=== PATIENT | male | born 1955 | race Caucasian/White ===

== ENCOUNTER 2018-07-21 12:22 | Day surgery (SDC) | payer OTHER, SELFPAY ==
[2018-07-19 14:15] VITALS: BMI 28.8
[2018-07-21] VITALS (7 sets, daily range): BP systolic 116–137; BP diastolic 63–87; PULSE 59–69; RESP 12–16; TEMP 36.2–36.6; O2SAT 96–100; BMI 28.8
--- NOTE | 2018-07-21 | DI.RAD.S_ITS ---
PROCEDURE: XR LUMBAR SPINE 2-3V INDICATIONS: L5-S1 MICRODISCECTOMY TECHNIQUE: 2 views of the lumbar spine were acquired. COMPARISON: None. FINDINGS: 2 spot fluoroscopic intraoperative images demonstrating a surgical instrument with the tip projecting at the L5-S1 level in the posterior paraspinal soft tissues Dictated by: Kit Almaguer M.D. on 07/21/2018 at 16:32 Approved by: Kit Almaguer M.D. on 07/21/2018 at 16:35
[2018-07-21] MEDS: LACTATED RINGERS 1,000 ML 42 ML IV (13:15)
[2018-07-21] MEDS: CEFAZOLIN 2 GM/100 ML FROZ.PIGGY IV (14:20)
--- NOTE | 2018-07-21 14:42 | SUR.OPER ---
Prone on spine table, head in foam head support, padded chest and pelvic supports, gel pad at knees, lower legs supported by pillows; nipples, genitalia and toes free of pressure, arms secured on foam padded arm boards at <90 degrees abduction. Tape over blanket at thigh secured to table.
[2018-07-21] MEDS: methylPREDNISolone acet DEPO 40 MG/ML VIAL IM (14:51)
[2018-07-21] MEDS: BUPIVACAINE 0.25% W/ EPI 30 ML VIAL INJ (15:11)
--- NOTE | 2018-07-21 15:35 | P.OP_ITS ---
Operative Date/Time/Diagnoses Date of procedure: 07/21/18 Time of procedure: 13:59 Pre-op diagnosis: 1. L5-S1 disc herniation 2. L5-S1 spinal stenosis with radiculopathy Post-op diagnosis: same Procedure & Clinicians Procedure: 1. L5-S1 right microdiscectomy 2. Utilization of microsurgical technique and operating microscope Same procedure as scheduled: Yes Indications: Patient has been having chronic back pain and worsening lumbar radiculopathy. Patient failed multiple conservative management with worsening pain weakness and numbness in her lower extremity. Patient has been having difficulty performing activity of daily living. After discussing risks benefits of treatment options, patient elected proceed with surgery. Surgeon: Isabel Isbell Turbine Measurements Engineer: Babs Carey'Brien Click Yes if Unassisted: No Anesthesia Type: General Operative Notes Closure Type: primary Specimen(s): none sent Estimated Blood Loss (mL): 10 Blood products transfused: none Procedure in detail: Patient was seen in the preoperative area. Risks and benefits of the surgery was discussed with the patient. Informed consent was obtained from the patient and placed in the chart. Surgical site was marked. Patient was taken to the operative room. General anesthesia was administered. Prophylactic antibiotic was given to the patient less than 30 min before the incision was made. Patient was placed into a prone position on the Raheel table. Patient's back was then prepped and draped in the sterile fashion. Time- out was performed at this time. Using AP and lateral C-arm imaging the interval between L5-S1 was identified and marked on patient's back. A 1 inch incision 1 in from midline was made on the right side. The fascia was incised in line with skin incision. Globus MARS retractors was placed inside the incision and docked onto the L5 lamina. Using microsurgical technique and operating microscope, a L5 laminotomy was performed using a Kerrison rongeur. Liagamentum flavum was resected at the site of the laminotomy. The disc space at L5-S1 was identified. Microdiscectomy was perfor med by incising the annulus with #11 blade. Microcurettes and pituitary was used to removed herniated disc fragments of disc from the epidural space. After the microdiskectomy was completed, the area medial lateral superior and inferior to the area of the microdiskectomy was inspected and explored using a micro curette. No other impinging structure was identified. The wound was then irrigated with sterile normal saline. 40 mg Depo-Medrol was placed into the epidural space. The deep fascia was closed with 1-0 Vicryl. The subcutaneous tissue was closed with 2-0 Vicryl. The skin was closed with 4-0 Monocryl. Patient tolerated the procedure well. There were no complications. Patient was transferred recovery room in stable condition. Complications: none Condition: stable Disposition: PACU Plan for aftercare: Admit to inpatient hospital
--- NOTE | 2018-07-21 15:36 | PM.PREOP ---
Pre-operative Note Interval Note History & Physical reviewed/Exam performed by Physician: Yes Changes to H&P: No
[2018-07-21] MEDS: fentaNYL 100 MCG/2 ML INJ 50 MCG IV ×2 (15:45→15:50)
[2018-07-21] MEDS: HYDROMORPHONE 2 MG INJ 0.25 MG IV ×2 (15:56→16:05)
[2018-07-21] MEDS: OXYCODONE/ACETAMINOPHEN 5/325 TABLET 1 TAB PO (16:22)
== END 2018-07-21 16:52 | disposition home or self-care (01) ==
PROVIDERS: PCP Family Medicine; Visit Provider Orthopaedic Surgery Orthopaedic Surgery of the Spine
PROC: (CPT 63030; principal; 2018-07-21 14:00)
DX: M51.16 Intervertebral disc disorders with radiculopathy, lumbar region (principal); M48.061 Spinal stenosis, lumbar region without neurogenic claudication; S39.012A Strain of muscle, fascia and tendon of lower back, initial encounter
CPT/HCPCS: 63030; 72100; 76000; J0690; J1030; J1100; J1170; J2405; J2704; J3010

== ENCOUNTER 2020-04-05 10:15 | Day surgery (SDC) | payer OTHER, SELFPAY ==
[2020-04-05] VITALS (14 sets, daily range): BP systolic 114–154; BP diastolic 77–95; PULSE 73–92; RESP 10–17; TEMP 36.2–36.6; O2SAT 93–98; BMI 29.8
--- NOTE | 2020-04-05 | DI.RAD.S_ITS ---
PROCEDURE: XR ANKLE LT MIN 3V INDICATIONS: FX REPAIR TECHNIQUE: 3 views of the ankle were acquired. COMPARISON: [facility], CT, CT ANKLE LEFT WITHOUT CONTRAST, 03/23/2020, 11:13. [facility], CR, XR ANKLE 1 OR 2 VIEWS LEFT, 03/15/2020, 10:59. FINDINGS: Bones: Improved alignment status post ORIF of complex trimalleolar left ankle fracture/dislocation. Posterior and lateral fixation screws have been placed in expected positions. 2 surgical screws traverse the medial malleolus. Ankle mortise is symmetric. Soft tissues: No tibiotalar joint effusion. Achilles tendon appears normal. IMPRESSION: Near anatomic alignment status post ORIF of complex left trimalleolar ankle fracture/dislocation. Dictated by: Armin FLOYD Interpreted: Samm Tom MD on 04/05/2020 at 17:02 Approved by: Samm Tom M.D. on 04/05/2020 at 17:12
[2020-04-05 10:58] LABS: Platelet Count 312 X10^3/uL (150-400)
[2020-04-05] MEDS: LACTATED RINGERS 1,000 ML 42 ML IV ×2 (11:00→15:03)
--- NOTE | 2020-04-05 11:53 | PM.PREOP ---
Pre-operative Note COVID-19 COVID-19 status: Negative Interval Note History & Physical reviewed/Exam performed by Physician: Yes Changes to H&P: No
[2020-04-05] MEDS: CEFAZOLIN 2 GM/100 ML FROZ.PIGGY IV (12:25)
[2020-04-05] MEDS: BUPIVACAINE 0.25% W/ EPI (PF) 10 ML VIAL 20 ML INJ (13:02)
--- NOTE | 2020-04-05 13:05 | SUR.OPER ---
Prone on padded OR bed, head in foam head support, gel chest rolls, gel pad under knees, blankets under lower legs, toes free of pressure, arms secured on padded arm boards at <90 degrees abduction. Safety belt across back.
--- NOTE | 2020-04-05 13:05 | SUR.OPER ---
Supine on padded OR bed, head on pillow, arms secured on padded arm boards at <90 degrees abduction, legs uncrossed, safety belt across abdomen, tape over blanket over nonoperative leg.
[2020-04-05] MEDS: fentaNYL 100 MCG/2 ML INJ IV ×2 (17:14→17:22)
[2020-04-05] MEDS: OXYCODONE/ACETAMINOPHEN 5/325 TABLET 1 TAB PO ×2 (17:27→18:09)
[2020-04-05] MEDS: ONDANSETRON 4 MG/2 ML INJ IV (17:27)
--- NOTE | 2020-04-05 17:45 | P.OP_ITS ---
Operative Date/Time/Diagnoses Date of procedure: 04/05/20 Time of procedure: 12:30 Pre-op diagnosis: Left ankle trimalleolar fracture dislocation Left ankle syndesmosis disruption Left ankle loose bodies anterior ankle joint, multiple Post-op diagnosis: same Procedure & Clinicians Procedure: 1. Open reduction internal fixation left trimalleolar ankle fracture with fixation of the posterior malleolus CPT code 72712 2. Open reduction internal fixation syndesmosis CPT code 12705, left 3. Open ankle arthrotomy and removal of loose bodies (osteochondral fracture fragments, anterior x3) CPT code 98526 Procedures performed with modifier 58 for stage management of left trimalleolar ankle fracture dislocation. Initial closed reduction splinting and fracture blister care all was completed. Now that his soft tissues has resolved presents for the definitive open reduction internal fixation Same procedure as scheduled: Yes Indications: The patient is a 64-year-old male that sustained a trimalleolar ankle fracture dislocation to his left ankle. He was seen at an outside hospital partial reduction splinting. If found to be too swollen and with fracture blisters for initial fixation underwent a closed reduction wrist splinting and wound care for his fracture blisters. Fracture blisters have not resolved and use appropriate for definitive fixation. The risks and benefits of the procedure have been discussed with the patient even opportunity to ask questions. The risks of surgery include but are not limited to infection, iveth nion, nonunion, persistence of pain, damage to nerves and blood vessels, posttraumatic arthritis, DVT, PE, cardiopulmonary complications and . The patient expressed a thorough understanding of the risks and benefits of surgery and has elected to proceed. Consent was signed in the office. CT scan demonstrated displaced posterior malleolus fracture oblique distal fibula fracture with additional comminution anteriorly at the AI TFL. Displaced medial malleolus fracture and intra-articular loose fracture fragment anterior at in the joint. He was indicated for staged management of his trimalleolar ankle fracture dislocation due to his soft tissues. As these have resolved with planned fixation with a posterior approach for the posterior malleolus and fibula and then as long as is anterior soft tissues are amenable will proceed with the supine fixation of the medial malleolus and or AI TFL a depending on intraoperative examination. Additionally loose bodies will be removed through anterior arthrotomy. Surgeon: Jammie Santiago Click Yes if Unassisted: Yes Anesthesia Type: General and Local Operative Notes Findings: Displaced trimalleolar ankle fracture dislocation with loose bodies anteriorly at the ankle joint. Do the staged management of the ankle fracture and time there was early healing and callus that was soft but required removing to mobilize the fractures. The posterior malleolus fracture and fibula fractures were approached through a posterior lateral approach in the prone position. These were mobilized reduced and provisionally pinned. X-rays were obtained intraoperatively with the fluoro. The posterior malleolus was stabilized with a 4 hole 1/3 tubular plate. A 4-0 cannulated screw was used distally and a anti glide fixation was then completed. The fibula was fixed with a 7 hole 1/3 tubular plate in antiglide fashion. This wound was then irrigated and closed. Patient was repositioned into a supine position for fixation of the medial malleolus which was with 24.0 short thread cancellous screws from the Arthrex set and then syndesmosis was further stabilized anteriorly at the level of the AI TFL with the Arthrex internal brace. Additional 3 separate osteochondral fragments were removed from the anterior ankle joint this appeared to be off the donor site of the distal tibia. The talus did show some scuffing medially but was otherwise intact no full-thickness lesions Closure Type: primary Specimen(s): none sent Prosthetic devices, grafts, tissues, transplants, or devices: Posterior malleolus Arthrex 1/3 tubular plate 4 hole, 3.5 screws. And 14x 4.0 cannulated screw long thread Lateral malleolus Arthrex 1/3 tubular 7 hole plate, cortical 3.5 screws proximally, 23.5 locking screws distally to decrease prominence Medial malleolus: 2x 4.0 partially-threaded cannulated screw short thread Syndesmosis: (was stabilized posteriorly by the posterior malleolus plate) anteriorly was stabilized by the Arthrex internal brace for the AI TFL Estimated Blood Loss (mL): 50 Tourniquet time (min): 75 Procedure in detail: Patient was seen in the preoperative area the site of surgery marked informed consent confirmed. The splint was taken down the skin was checked. Fracture blisters had decompressed and healed and skin wrinkles were present. There was some erythema and then skin thinning around the area of the medial malleolus fracture. There are no wounds no bleeding no ascending cellulitis no malodor. Skin just anterior to this along the anterior margin the medial malleolus was intact and healthy. She was brought back to the operating room by the anesthesia team and positioned supine on on the stretcher. General anesthetic was administered. The patient was then positioned prone on the operative table with the chest rolls. All bony prominences well padded. Well-padded thigh tourniquet was placed on the operative extremity. The patient was prepped and draped in the standard sterile fashion. Formal time-out procedure was performed confirming the patient's side and site of surgery administration of appropriate preoperative antibiotics and implants in the room and presence of informed consent. All were in agreement Attention turned to the left lower extremity. The posterior lateral incision was marked penitentiary between the Achilles and the fibula on the leg. The Esmarch bandage was used for exsanguination and the tourniquet elevated to 250 mm of mercury this stayed up for approximately 75 minutes and then was released for repositioning it was greater than 20 minutes break and was elevated for the 2nd part of the procedure for a 65 minutes. Sharp dissection was taken down through the posterolateral approach through the skin subcutaneous tissues. The fascia was opened. The peroneal tendons were retracted laterally. The FHL was elevated and retracted medially to protect the neurovascular bundle. This brought us back down on the back of the fibula. The fracture was identified. There was a copious soft callus. This was removed and mobilizing the fibular fracture. Then the posterior tibia was addressed again the posterior malleolus fractured copious callus that needed to be removed in order to identify and mobilize the fracture fragment. Once this was completed the posterior malleolus fracture and distal fibula fractures were reduced translating them medially in this case at and then pinned in place. Length and alignment of the fibula was restored and provisionally fixed with K-wires. The C-arm was brought in and AP and lateral images were obtained confirming appropriate alignment reduction. At this point a 1/3 tubular 4 hole Arthrex plate was fit over the posterior malleolus pinned the guide wire and secured using the BB tack. A antiglide screw was placed at the apex of the fracture and then the guidewire across the posterior malleolus fracture was over drilled and a 4.0 cannulated screw was placed holding the reduction compressing the plate to the bone. Final proximal cortical screw was placed completing fixation of the posterior malleolus. Next attention was turned to the lateral malleolus a was 7 hole 1/3 tubular plate was placed at the posterior aspect of the reduced lateral malleolus. The plate was placed in antiglide fashion again with the 1st cortical screw just above the apex of the fracture. Once this was replaced remaining cortical screws were placed proximally. A BB tack held the plate distally to the bone. Distal fibula was noted to be quite soft with some known comminution anteriorly therefore as this was well approximated to the bone to locking screws were placed a to decrease prominence and provide stable fixation. Next the wound was irrigated the tourniquet was released hemostasis was achieved. The wound was closed in layered fashion with 2-0 Vicryl deep. 4-0 Monocryl subcutaneous and 3-0 nylon in the skin. A provisional dressing was placed. Drapes were removed patient was then positioned supine onto the operative table and the the S 2nd part of the surgery was set to begin. The leg was re-prepped and the standard sterile fashion and redraped. Secondary time-out was performed confirming the posterior part of the procedure had completed and work was to begin anteriorly. Next attention was turned to the anterior ankle joint the medial malleolus and lateral malleolus were marked out in the level of the joint was marked out as well. A due to the condition of the skin right over the medial malleolus a more anteriorly cheated the incision was made along the anterior border of the medial malleolus for the tissue was healthy. This was lysed along the medial gutter. Tourniquet was elevated for the 2nd time. Incision was made through the skin subcutaneous tissues and down to the level of the anterior corner of the medial malleolus in the arthrotomy was made. The medial malleolus fracture was cleaned of debris. There was trapped periosteum within the fracture site. At this was freed up. The joint was inspected through the arthrotomy. There were 2 small osteochondral fragments medially these were removed and appeared to come from a donor site on the distal anterior tibia. The talus did have some scuffing medially but no full-thickness lesions. Medial malleolus was reduced with a pointed reduction clamp. Then a percutaneous incision at the distal aspect of the medial malleolus introduced guidewires for the cannulated screws. These were placed in standard parallel fashion. Once adequate placement was confirmed this was overdrilled and 2 x 45 short thread 4-0 cannulated screws were placed. This anatomically reduced the medial malleolus. This point attention was turned to the anterior lateral ankle again. There was known significant comminution around the area of the AI TFL a small a [place] and small sunny of fragmentation on the CT scan for the ankle. Anterior lateral incision was made between the tibia and fibula down over the syndesmosis and extended distally into a lateral arthrotomy. There were multiple fracture fragments the area of the grossly torn AI TFL. Utilizing the lateral arthrotomy a larger nearly 1 cm by 3 mm osteochondral fragment was removed from the anterior lateral ankle joint. Once this was removed the joint was irrigated. Again this appeared to be donor site of the distal tibia as the talar cartilage was intact laterally. Attention was returned to the syndesmotic fixation. The AI TFL was recreated using the Arthrex internal brace. The drill for the 3.5 corkscrew was placed into the fibula and in the standard fashion the 4.75 corkscrew was placed at the insertion on the tibia. The care was taken not to make this too tight. This provided excellent security to the anterior syndesmosis and combined with the poultry raiser malleolus fixation posteriorly. The ankle was stressed grossly in the operating room with no widening after reconstructive procedures. Final fluoroscopic images were taken AP mortise and lateral confirming hardware placement and joint reduction. The wounds were irrigated. The joint was thoroughly irrigated. Tourniquet was released. Hemostasis was achieved. The wounds were closed in layers with 2 O Vicryl, 4-0 Monocryl, 3-0 nylon suture. A well-padded bulky Ewing style splint was placed. Drapes removed and the patient was woken from anesthesia and taken to recovery unit in good condition. Local anesthetic was injected prior to dressings. Complications: none Post-operative Condition: stable Disposition: PACU Plan for aftercare: Nonweightbearing left lower extremity. Will restart aspirin 325 mg on postop day 1 for DVT prophylaxis. Elevate above the heart level for 23 hours a day for the 1st 2 weeks after surgery. May take Toradol for 5 days as well for pain control. Will have oxycodone prescription. Keep splint clean dry and intact. Follow-up in 2 weeks for possible suture removal early range of motion and boot placement.
== END 2020-04-05 18:10 | disposition home or self-care (01) ==
PROVIDERS: Anesthesiology; PCP Family Medicine; Referring Provider Family Medicine; Visit Provider Orthopaedic Surgery Foot and Ankle Surgery
PROC: (CPT 27823; principal; 2020-04-05 11:45)
DX: S82.852G Displaced trimalleolar fracture of left lower leg, subsequent encounter for closed fracture with delayed healing (principal); S93.432D Sprain of tibiofibular ligament of left ankle, subsequent encounter; M24.072 Loose body in left ankle
CPT/HCPCS: 27823; 27829; 73610; 76000; 85049; J0330; J0690; J1100; J1170; J2405; J2704; J3010